=== PATIENT | male | born 1950 | race Caucasian/White ===

== ENCOUNTER 2016-09-14 11:24 | Emergency (ER) | payer OTHER ==
[~2016-09-14] VITALS: Ht 177.8 cm; Wt 84.6 kg
[2016-09-14] MEDS ORDERED: NITROGLYCERIN 0.4 MG SL PER TAB CHARGE SL STA (11:43)
[2016-09-14 12:05] LABS: HEMATOCRIT 46.8 % (42-52); MEAN CELL VOLUME 89.7 fL (80-100); MEAN CORPUSCULAR HEMOGLOBIN 30.1 pg (25-34); MEAN CORPUSCULAR HGB CONC 33.5 g/dl (32-36); MEAN PLATELET VOLUME 9.1 fL (7.4-10.4); PLATELET COUNT 204 K/uL (130-400); RED BLOOD COUNT 5.22 M/uL (4.7-6.1); WHITE BLOOD COUNT 7.55 K/uL (4.8-10.8)
--- NOTE | 2016-09-14 12:07 | DIAGNOSTIC IMAGING REPORT ---
CHEST ONE VIEW PORTABLE CLINICAL HISTORY: Chest and back pain COMPARISON STUDY: No previous studies for comparison. FINDINGS: The cardiac and mediastinal contours are normal. There is no evidence of focal pulmonary consolidation. There is no evidence of failure. No pleural effusions are visualized.[ IMPRESSION: No active disease in the chest. Electronically signed by: Demetri Valadez M.D. 09/14/2016 12:06 PM Dictated Date/Time: 09/14/2016 12:06 PM
[2016-09-14] MEDS ORDERED: LORA10CA10 PO (12:08)
[2016-09-14] MEDS ORDERED: ASPI81TA28 PO (12:08)
[2016-09-14] MEDS ORDERED: MULT-506 PO (12:08)
[2016-09-14] MEDS ORDERED: PRAV40TA PO (12:08)
[2016-09-14] MEDS ORDERED: MELO15TA4 PO (12:08)
[2016-09-14] MEDS ORDERED: OMEG10007 PO (12:08)
[2016-09-14 12:14] LABS: PROTHROMBIN TIME (PATIENT) 10.3 SECONDS (9.0-12.0)
[2016-09-14 12:15] LABS: ALT/SGPT 36 U/L (12-78); AST/SGOT 22 U/L (15-37); BLOOD UREA NITROGEN 18 mg/dl (7-18); BUN/CREATININE RATIO 18.6 (10-20); CALCIUM 9.2 mg/dl (8.5-10.1); CARBON DIOXIDE 28 mmol/L (21-32); CHLORIDE 106 mmol/L (98-107); CREATININE 0.96 mg/dl (0.60-1.40); GLUCOSE 97 mg/dl (70-99); POTASSIUM 4.8 mmol/L (3.5-5.1); SODIUM 142 mmol/L (136-145)
[2016-09-14 12:15] LABS: POINT OF CARE PRO-BNP 24 pg/ml (0-900); POINT OF CARE TROPONIN I < 0.030 ng/ml (0-0.045)
[2016-09-14 12:20] LABS: ALKALINE PHOSPHATASE 56 U/L (45-117); CKMB/CK RATIO 2.2 (0-3.0)
--- NOTE | 2016-09-14 12:31 | EMERGENCY ROOM VISIT NOTE ---
ED Visit Note First contact with patient: 11:34 I have seen and examined this patient with Cleo Munson and generally agree with the treatment plan as discussed. Current/Historical Medications Scheduled Aspirin (Aspirin Ec), 81 MG PO DAILY Fish Oil ([place]-3), 1 CAP PO BID Loratadine (Loratadine), 10 MG PO DAILY Meloxicam (Meloxicam), 15 MG PO QAM Multivitamin (Multivitamin), 1 TAB PO DAILY Pravastatin Sodium (Pravachol), 40 MG PO HS Allergies Coded Allergies: No Known Allergies (Unverified , 09/14/16) Vital Signs Date Time Temp Pulse Resp B/P (MAP) Pulse Ox O2 Delivery O2 Flow Rate FiO2 09/14/16 11:58 82 09/14/16 11:54 84 11 94 09/14/16 11:51 95 Room Air 09/14/16 11:50 84 116/84 96 Room Air 09/14/16 11:49 73 12 96 09/14/16 11:44 75 11 96 09/14/16 11:30 36.8 81 20 162/95 96 Room Air 09/14/16 11:28 162/95 Laboratory Results 09/14/16 11:35 Red Blood Count 5.22, Mean Corpuscular Volume 89.7, Mean Corpuscular Hemoglobin 30.1, Mean Corpuscular Hemoglobin Concent 33.5, Mean Platelet Volume 9.1 09/14/16 11:35 Test 09/14/16 11:35 09/14/16 11:55 White Blood Count 7.55 K/uL (4.8-10.8) Red Blood Count 5.22 M/uL (4.7-6.1) Hemoglobin 15.7 g/dL (14.0-18.0) Hematocrit 46.8 % (42-52) Mean Corpuscular Volume 89.7 fL (80-100) Mean Corpuscular Hemoglobin 30.1 pg (25-34) Mean Corpuscular Hemoglobin Concent 33.5 g/dl (32-36) Platelet Count 204 K/uL (130-400) Mean Platelet Volume 9.1 fL (7.4-10.4) RDW Standard Deviation 43.7 fL (36.4-46.3) RDW Coefficient of Variation 13.2 % (11.5-14.5) Prothrombin Time 10.3 SECONDS (9.0-12.0) Prothromb Time International Ratio 1.0 (0.9-1.1) Activated Partial Thromboplast Time 26.6 SECONDS (21.0-31.0) Partial Thromboplastin Ratio 1.0 Anion Gap 8.0 mmol/L (3-11) Est Creatinine Clear Calc Drug Dose 77.1 ml/min Estimated GFR () 94.4 Estimated GFR (Non- 81.5 BUN/Creatinine Ratio 18.6 (10-20) Calcium Level 9.2 mg/dl (8.5-10.1) Total Bilirubin 0.3 mg/dl (0.2-1) Direct Bilirubin < 0.1 mg/dl (0-0.2) Aspartate Amino Transf (AST/SGOT) 22 U/L (15-37) Alanine Aminotransferase (ALT/SGPT) 36 U/L (12-78) Alkaline Phosphatase 56 U/L (45-117) Total Creatine Kinase 117 U/L (39-308) Creatine Kinase MB 2.6 ng/ml (0.5-3.6) Creatine Kinase MB Ratio 2.2 (0-3.0) Total Protein 7.7 gm/dl (6.4-8.2) Albumin 3.9 gm/dl (3.4-5.0) Lipase 240 U/L (73-393) Bedside Troponin I < 0.030 ng/ml (0-0.045) OP-Byt-T-Type Natriuretic Peptide 24 pg/ml (0-900) Medications Administered Medications (Trade) Dose Ordered Sig/Brien Route Start Time Stop Time Status Last Admin Dose Admin Nitroglycerin (Nitrostat Tab) 0.4 mg Q5M STAT SL 09/14/16 11:43 09/14/16 11:48 DC 09/14/16 11:51 0.4 MG Departure Information Referrals Darron Wyman D.O. (PCP) Patient Instructions On License Of [facility]
[2016-09-14 12:34] LABS: BASO % 0.8 %; BASO ABS # 0.06 K/uL (0-0.2); COMPLETE YES; EOS % 6.2 %; IG% 0.3 %; LYMPH ABS # 3.85 K/uL (1.2-3.4); MONO % 7.2 %; NEUT % 34.5 %
--- NOTE | 2016-09-14 15:09 | EMERGENCY ROOM VISIT NOTE ---
History First contact with patient: 11:34 Chief Complaint: CHEST PAIN Stated Complaint: CHEST/BACK PAIN Nursing Triage Summary: see triage note History of Present Illness The patient is a 66 year old male who presents to the Emergency Room with complaints of chest pain. The patient states that 8:30 this morning he was eating breakfast and got left-sided chest pain that radiated under his left shoulder blade. He also stated that his "left arm feels funny". The patient states initially the pain was severe which she would rate at an 8 out of 10 but is now only a 2 out of 10. He states this severe pain only lasted for approximately 30 minutes. The patient had already taken 162 mg of aspirin early this morning along with Mobic 15 mg. When he got the pain in his chest at 8:30 he took an additional 325 mg of aspirin. He denies any associated nausea or sweating or shortness of breath. The patient denies any history of hypertension but does admit to history of hyperlipidemia. He denies smoking. He denies any recent leg pain. The patient does admit that there is a strong family history of CAD. His brother had a heart attack at age 44. The patient states that he had a stress test 4-5 years ago in [place] which was normal. His family physician assistant librarian is Dr. Wyman also in [place]. He came to [facility] because his son told him to come here. Review of Systems 10 system review was performed and was negative unless stated otherwise history of present illness. Past Medical/Surgical History Chest trauma, hyperlipidemia Social History Smoking Status: Never Smoker Drug Use: none Marital Status: Housing Status: lives with family Occupation Status: employed Current/Historical Medications Scheduled Aspirin (Aspirin Ec), 81 MG PO DAILY Fish Oil ([place]-3), 1 CAP PO BID Loratadine (Loratadine), 10 MG PO DAILY Meloxicam (Meloxicam), 15 MG PO QAM Multivitamin (Multivitamin), 1 TAB PO DAILY Pravastatin Sodium (Pravachol), 40 MG PO HS Allergies Coded Allergies: No Known Allergies (Unverified , 09/14/16) Physical Exam Vital Signs Date Time Temp Pulse Resp B/P (MAP) Pulse Ox O2 Delivery O2 Flow Rate FiO2 09/14/16 14:29 72 13 97 09/14/16 14:24 65 13 97 09/14/16 14:19 70 13 96 09/14/16 14:14 67 14 96 09/14/16 14:09 72 21 94 09/14/16 14:04 67 17 96 09/14/16 14:02 107/72 09/14/16 13:59 71 10 97 09/14/16 13:54 69 14 96 09/14/16 13:49 64 14 97 09/14/16 13:44 68 21 96 09/14/16 13:39 68 22 96 09/14/16 13:34 67 16 96 09/14/16 13:32 117/69 09/14/16 13:29 69 13 95 09/14/16 13:24 70 14 95 09/14/16 13:19 68 22 95 09/14/16 13:14 70 17 94 09/14/16 13:09 67 17 96 09/14/16 13:04 64 13 96 09/14/16 13:02 103/72 09/14/16 12:59 70 14 95 09/14/16 12:54 67 17 96 09/14/16 12:49 68 22 95 09/14/16 12:44 67 16 95 09/14/16 12:39 68 14 95 09/14/16 12:34 72 18 95 09/14/16 12:32 111/68 09/14/16 12:29 73 18 94 09/14/16 12:24 71 10 94 09/14/16 12:19 70 10 95 09/14/16 12:14 71 9 95 09/14/16 12:09 76 12 95 09/14/16 12:04 75 16 95 09/14/16 12:02 125/88 09/14/16 11:59 96 23 95 09/14/16 11:58 82 09/14/16 11:54 84 11 94 09/14/16 11:51 95 Room Air 09/14/16 11:50 84 116/84 96 Room Air 09/14/16 11:49 73 12 96 09/14/16 11:44 75 11 96 09/14/16 11:30 36.8 81 20 162/95 96 Room Air 09/14/16 11:28 162/95 Physical Exam GENERAL: 66-year-old white male appears in no acute distress. MENTAL Status: Alert and oriented 3. EYES: PERRLA. EOMs intact. NECK: Supple, no lymphadenopathy noted. No carotid bruits noted. LUNGS: Clear auscultation without wheezes rales or rhonchi. CARDIAC: Regular rate and rhythm without murmur. Pulses is full and equal throughout. ABDOMEN: Positive bowel sounds all 4 quadrants. Soft, nontender to palpation without organomegaly or masses. LOWER EXTREMITY: No cyanosis or edema noted. Calves are nontender. Negative Homans bilaterally. Medical Decision & Procedures ER Provider Diagnostic Interpretation: CHEST ONE VIEW PORTABLE CLINICAL HISTORY: Chest and back pain COMPARISON STUDY: No previous studies for comparison. FINDINGS: The cardiac and mediastinal contours are normal. There is no evidence of focal pulmonary consolidation. There is no evidence of failure. No pleural effusions are visualized.[ IMPRESSION: No active disease in the chest. Electronically signed by: Demetri Valadez M.D. 09/14/2016 12:06 PM Dictated Date/Time: 09/14/2016 12:06 PM Laboratory Results 09/14/16 11:35 Red Blood Count 5.22, Mean Corpuscular Volume 89.7, Mean Corpuscular Hemoglobin 30.1, Mean Corpuscular Hemoglobin Concent 33.5, Mean Platelet Volume 9.1, Neutrophils (%) (Auto) 34.5, Lymphocytes (%) (Auto) 51.0, Monocytes (%) (Auto) 7.2, Eosinophils (%) (Auto) 6.2, Basophils (%) (Auto) 0.8, Neutrophils # (Auto) 2.61, Lymphocytes # (Auto) 3.85, Monocytes # (Auto) 0.54, Eosinophils # (Auto) 0.47, Basophils # (Auto) 0.06 09/14/16 11:35 Test 09/14/16 11:35 09/14/16 11:55 09/14/16 14:08 09/14/16 14:45 White Blood Count 7.55 K/uL (4.8-10.8) Red Blood Count 5.22 M/uL (4.7-6.1) Hemoglobin 15.7 g/dL (14.0-18.0) Hematocrit 46.8 % (42-52) Mean Corpuscular Volume 89.7 fL (80-100) Mean Corpuscular Hemoglobin 30.1 pg (25-34) Mean Corpuscular Hemoglobin Concent 33.5 g/dl (32-36) Platelet Count 204 K/uL (130-400) Mean Platelet Volume 9.1 fL (7.4-10.4) Neutrophils (%) (Auto) 34.5 % Lymphocytes (%) (Auto) 51.0 % Monocytes (%) (Auto) 7.2 % Eosinophils (%) (Auto) 6.2 % Basophils (%) (Auto) 0.8 % Neutrophils # (Auto) 2.61 K/uL (1.4-6.5) Lymphocytes # (Auto) 3.85 K/uL (1.2-3.4) Monocytes # (Auto) 0.54 K/uL (0.11-0.59) Eosinophils # (Auto) 0.47 K/uL (0-0.5) Basophils # (Auto) 0.06 K/uL (0-0.2) RDW Standard Deviation 43.7 fL (36.4-46.3) RDW Coefficient of Variation 13.2 % (11.5-14.5) Immature Granulocyte % (Auto) 0.3 % Immature Granulocyte # (Auto) 0.02 K/uL (0.00-0.02) Prothrombin Time 10.3 SECONDS (9.0-12.0) Prothromb Time International Ratio 1.0 (0.9-1.1) Activated Partial Thromboplast Time 26.6 SECONDS (21.0-31.0) Partial Thromboplastin Ratio 1.0 Anion Gap 8.0 mmol/L (3-11) Est Creatinine Clear Calc Drug Dose 77.1 ml/min Estimated GFR () 94.4 Estimated GFR (Non- 81.5 BUN/Creatinine Ratio 18.6 (10-20) Calcium Level 9.2 mg/dl (8.5-10.1) Total Bilirubin 0.3 mg/dl (0.2-1) Direct Bilirubin < 0.1 mg/dl (0-0.2) Aspartate Amino Transf (AST/SGOT) 22 U/L (15-37) Alanine Aminotransferase (ALT/SGPT) 36 U/L (12-78) Alkaline Phosphatase 56 U/L (45-117) Total Creatine Kinase 117 U/L (39-308) Creatine Kinase MB 2.6 ng/ml (0.5-3.6) Creatine Kinase MB Ratio 2.2 (0-3.0) Total Protein 7.7 gm/dl (6.4-8.2) Albumin 3.9 gm/dl (3.4-5.0) Lipase 240 U/L (73-393) VP-Cwg-Y-Type Natriuretic Peptide 24 pg/ml (0-900) Bedside Troponin I < 0.030 ng/ml (0-0.045) Medications Administered Medications (Trade) Dose Ordered Sig/Rbien Route Start Time Stop Time Status Last Admin Dose Admin Nitroglycerin (Nitrostat Tab) 0.4 mg Q5M STAT SL 09/14/16 11:43 09/14/16 11:48 DC 09/14/16 11:51 0.4 MG ECG Indication: chest pain Rhythm: normal sinus Findings: no acute ischemic change ED Course The patient was evaluated. The patient was placed on a monitor and continuous pulse ox. IV access was obtained. EKG was ordered and interpreted by myself as above without any acute ST changes. CBC and differential, renal profile, LFTs and lipase levels, coags, CK-MB, [id number] BNP and troponin were ordered. The patient was given nitroglycerin sublingually. Chest x-ray was ordered and interpreted by the radiologist as above. The patient's case was discussed with Dr. Molina who independently evaluated the patient and agreed with treatment plan. After receiving the nitroglycerin the patient states that his pain at rest seemed to improve but he still has chest pain with movement. Labs are reviewed. Most were unremarkable. The patient's troponin was slightly bumped at 0.03. Repeat upon and in 2 hours was again 0.03. I discussed with the patient about being admitted for cardiac rule out. Initially he was not in agreement but eventually he agreed to admission. Hospitalist was consulted for evaluation and admission. Medical Decision Differential diagnosis include GERD, acute gastritis, pneumonia, acute bronchitis, acute [place], PE Impression Primary Impression: Left sided chest pain Departure Information Dispostion Being Evaluated By Hospitalist Condition GOOD Referrals Darron Wyman D.O. (PCP) Patient Instructions [facility]
[2016-09-14 15:15] LABS: URINE APPEARANCE CLEAR (CLEAR); URINE BILIRUBIN NEG (NEG); URINE COLOR YELLOW; URINE NITRITE NEG (NEG); URINE PH 6.5 (4.5-7.5); URINE SPECIFIC GRAVITY 1.016 (1.000-1.030); UROBILINOGEN NEG (NEG); ZZUR CULT IF INDIC CLEAN CATCH NO
[2016-09-14 15:34] LABS: MANUAL MICROSCOPIC REQUIRED? NO; REVIEW REQ? NO
[2016-09-14] MEDS ORDERED: ACETAMINOPHEN 325 MG TAB PO PRN (16:15)
[2016-09-14] MEDS ORDERED: ZOLPIDEM TARTRATE 5 MG TAB PO PRN (16:15)
[2016-09-14] MEDS ORDERED: NITROGLYCERIN 0.4 MG SL PER TAB CHARGE SL PRN (16:15)
[2016-09-14 16:30] VITALS: O2SAT 97; Ht 177.8 cm; Wt 84.6 kg
[2016-09-14] MEDS ORDERED: IV FLUIDS COMPLETED PRN (16:30)
[2016-09-14] MEDS ORDERED: ONDANSETRON INJ 2 MG/ML 2 ML VIAL IV PRN (16:30)
[2016-09-14 17:30] LABS: CKMB/CK RATIO 2.6 (0-3.0)
--- NOTE | 2016-09-14 19:28 | History and Physical ---
History & Physical Date & Time of Service: Sep 14, 2016 at 19:22 Chief Complaint: Left Sided Chest Pain Primary Care Physician: Darron Wyman D.O. History of Present Illness Source: patient The patient is a 66-year-old male who developed precordial chest pain several hours prior to arrival. His pain level upon arrival was 2/10, and resolved with sublingual nitroglycerin in the emergency department. His risk factors include strong family history, hypertension, hypercholesterolemia and male over the age 45. He reports no change in his usual activities that may have precipitated the chest discomfort. He denies any episodes of chest discomfort in the past. Social History Smoking Status: Never Smoker Smokeless Tobacco Use: No Alcohol Use: none Drug Use: none Marital Status: Housing status: lives with family Occupational Status: employed Multi-Drug Resistant Organisms History of MDRO: No Allergies Coded Allergies: No Known Allergies (Unverified , 09/14/16) Home Medications Scheduled Aspirin (Aspirin Ec), 81 MG PO DAILY Fish Oil ([place]-3), 1 CAP PO BID Loratadine (Loratadine), 10 MG PO DAILY Meloxicam (Meloxicam), 15 MG PO QAM Multivitamin (Multivitamin), 1 TAB PO DAILY Pravastatin Sodium (Pravachol), 40 MG PO HS Review of Systems The patient denies palpitations, cough, lower extremity swelling, vision change, hearing change, sore throat, fevers, chills, sweats, weight change, fatigue, nausea, vomiting, abdominal pain, pelvic pain, blood in urine or stool , dysuria, urinary frequency or urgency, lightheadedness, dizziness, headache, memory loss, rash, abnormal bruising or bleeding, imbalance, focal or generalized weakness, numbness or tingling in arms or legs, arthralgias or myalgias, back or neck pain, night sweats, or allergy symptoms. The review of systems is otherwise negative other than for that already noted above, and at least 10 systems have been reviewed. Physical Exam Vital Signs Date Time Temp Pulse Resp B/P (MAP) Pulse Ox O2 Delivery O2 Flow Rate FiO2 09/14/16 17:45 36.8 67 12 116/75 97 09/14/16 17:09 67 12 09/14/16 17:04 64 21 09/14/16 17:02 116/75 09/14/16 16:59 63 20 09/14/16 16:54 64 15 09/14/16 16:49 66 13 09/14/16 16:44 63 18 09/14/16 16:39 74 18 09/14/16 16:34 68 14 09/14/16 16:32 149/99 09/14/16 16:30 97 Room Air 09/14/16 16:29 67 17 09/14/16 16:24 65 23 09/14/16 16:19 79 17 09/14/16 16:14 77 18 09/14/16 16:09 69 21 09/14/16 16:04 63 16 09/14/16 16:02 130/90 09/14/16 16:00 71 18 128/86 97 Room Air 09/14/16 15:59 66 17 128/86 09/14/16 14:39 81 17 96 09/14/16 14:34 68 14 96 09/14/16 14:29 72 13 97 09/14/16 14:24 65 13 97 09/14/16 14:19 70 13 96 09/14/16 14:14 67 14 96 09/14/16 14:09 72 21 94 09/14/16 14:04 67 17 96 09/14/16 14:02 107/72 09/14/16 13:59 71 10 97 09/14/16 13:54 69 14 96 09/14/16 13:49 64 14 97 09/14/16 13:44 68 21 96 09/14/16 13:39 68 22 96 09/14/16 13:34 67 16 96 09/14/16 13:32 117/69 09/14/16 13:29 69 13 95 09/14/16 13:24 70 14 95 09/14/16 13:19 68 22 95 09/14/16 13:14 70 17 94 09/14/16 13:09 67 17 96 09/14/16 13:04 64 13 96 09/14/16 13:02 103/72 09/14/16 12:59 70 14 95 09/14/16 12:54 67 17 96 09/14/16 12:49 68 22 95 09/14/16 12:44 67 16 95 09/14/16 12:39 68 14 95 09/14/16 12:34 72 18 95 09/14/16 12:32 111/68 09/14/16 12:29 73 18 94 09/14/16 12:24 71 10 94 09/14/16 12:19 70 10 95 09/14/16 12:14 71 9 95 09/14/16 12:09 76 12 95 09/14/16 12:04 75 16 95 09/14/16 12:02 125/88 09/14/16 11:59 96 23 95 09/14/16 11:58 82 09/14/16 11:54 84 11 94 09/14/16 11:51 95 Room Air 09/14/16 11:50 84 116/84 96 Room Air 09/14/16 11:49 73 12 96 09/14/16 11:44 75 11 96 09/14/16 11:30 36.8 81 20 162/95 96 Room Air 09/14/16 11:28 162/95 The patient is awake, well-developed and adequately nourished, alert and oriented 3, normocephalic and atraumatic, lying in bed and in no acute distress. HEENT--PERRL, EOMI, mucous membranes and oropharynx dry. Neck--supple, no JVD or bruits, thyroid normal, trachea midline, no adenopathy. Heart--normal S1 and S2, no extra beats, no murmurs, rubs or gallops. Lungs--clear bilaterally with good air movement, no respiratory distress, no accessory muscle use. Abdomen--normal bowel sounds and soft, nontender and nondistended, no hernias or masses, no organomegaly. Extremities--no cyanosis, clubbing or edema. There are good distal pulses b/l. Dermatologic--normal skin turgor, normal color, warm and dry, no abnormal lymph nodes, no rash. Neurologic--cranial nerves II through XII grossly intact, motor and sensory examination normal. Rheumatologic--normal range of motion, nontender, muscles and joints. Psychiatric--normal affect. Diagnostics Laboratory Results Results Past 24 Hours Test 09/14/16 11:35 09/14/16 11:55 09/14/16 14:08 09/14/16 14:45 Range/Units White Blood Count 7.55 4.8-10.8 K/uL Red Blood Count 5.22 4.7-6.1 M/uL Hemoglobin 15.7 14.0-18.0 g/dL Hematocrit 46.8 42-52 % Mean Corpuscular Volume 89.7 80-100 fL Mean Corpuscular Hemoglobin 30.1 25-34 pg Mean Corpuscular Hemoglobin Concent 33.5 32-36 g/dl Platelet Count 204 130-400 K/uL Mean Platelet Volume 9.1 7.4-10.4 fL Neutrophils (%) (Auto) 34.5 % Lymphocytes (%) (Auto) 51.0 % Monocytes (%) (Auto) 7.2 % Eosinophils (%) (Auto) 6.2 % Basophils (%) (Auto) 0.8 % Neutrophils # (Auto) 2.61 1.4-6.5 K/uL Lymphocytes # (Auto) 3.85 1.2-3.4 K/uL Monocytes # (Auto) 0.54 0.11-0.59 K/uL Eosinophils # (Auto) 0.47 0-0.5 K/uL Basophils # (Auto) 0.06 0-0.2 K/uL RDW Standard Deviation 43.7 36.4-46.3 fL RDW Coefficient of Variation 13.2 11.5-14.5 % Immature Granulocyte % (Auto) 0.3 % Immature Granulocyte # (Auto) 0.02 0.00-0.02 K/uL Prothrombin Time 10.3 9.0-12.0 SECONDS Prothromb Time International Ratio 1.0 0.9-1.1 Activated Partial Thromboplast Time 26.6 21.0-31.0 SECONDS Partial Thromboplastin Ratio 1.0 Sodium Level 142 136-145 mmol/L Potassium Level 4.8 3.5-5.1 mmol/L Chloride Level 106 98-107 mmol/L Carbon Dioxide Level 28 21-32 mmol/L Anion Gap 8.0 3-11 mmol/L Blood Urea Nitrogen 18 7-18 mg/dl Creatinine 0.96 0.60-1.40 mg/dl Est Creatinine Clear Calc Drug Dose 77.1 ml/min Estimated GFR () 94.4 Estimated GFR (Non- 81.5 BUN/Creatinine Ratio 18.6 10-20 Random Glucose 97 70-99 mg/dl Calcium Level 9.2 8.5-10.1 mg/dl Total Bilirubin 0.3 0.2-1 mg/dl Direct Bilirubin < 0.1 0-0.2 mg/dl Aspartate Amino Transf (AST/SGOT) 22 15-37 U/L Alanine Aminotransferase (ALT/SGPT) 36 12-78 U/L Alkaline Phosphatase 56 45-117 U/L Total Creatine Kinase 117 39-308 U/L Creatine Kinase MB 2.6 0.5-3.6 ng/ml Creatine Kinase MB Ratio 2.2 0-3.0 Total Protein 7.7 6.4-8.2 gm/dl Albumin 3.9 3.4-5.0 gm/dl Lipase 240 73-393 U/L Bedside Troponin I < 0.030 < 0.030 0-0.045 ng/ml YC-Ard-T-Type Natriuretic Peptide 24 0-900 pg/ml Urine Color YELLOW Urine Appearance CLEAR CLEAR Urine pH 6.5 4.5-7.5 Urine Specific [place] 1.016 1.000-1.030 Urine Protein NEG NEG Urine Glucose (UA) NEG NEG Urine Ketones NEG NEG Urine Occult Blood NEG NEG Urine Nitrite NEG NEG Urine Bilirubin NEG NEG Urine Urobilinogen NEG NEG Urine Leukocyte Esterase NEG NEG Test 09/14/16 16:55 Range/Units Total Creatine Kinase 92 39-308 U/L Creatine Kinase MB 2.4 0.5-3.6 ng/ml Creatine Kinase MB Ratio 2.6 0-3.0 Troponin I < 0.015 0-0.045 ng/ml Diagnostic Radiology Patient Name: OSMAN CAMACHO Unit Number: [id number] Dictated: 09/14/161205 Transcribed: 09/14/161205 ARG Printed Date/Time: [~ rep prt dt]/[~ rep prt tm] [~ rep ct labl] - [~ rep ct ivnm] [facility] [place] [address] Dictated: 09/14/161205 Transcribed: 09/14/161205 ARG Printed Date/Time: [~ rep prt dt]/[~ rep prt tm] [~ rep ct labl] - [~ rep ct ivnm] CHEST ONE VIEW PORTABLE CLINICAL HISTORY: Chest and back pain COMPARISON STUDY: No previous studies for comparison. FINDINGS: The cardiac and mediastinal contours are normal. There is no evidence of focal pulmonary consolidation. There is no evidence of failure. No pleural effusions are visualized.[ IMPRESSION: No active disease in the chest. Electronically signed by: Demetri Valadez M.D. 09/14/2016 12:06 PM Dictated Date/Time: 09/14/2016 12:06 PM The status of this report is Signed. Draft = Not yet reviewed or approved by Radiologist. Signed = Reviewed and approved by Radiologist. <AttendingPhy></AttendingPhy> <FamilyPhy>Darron Wyman D.O.</FamilyPhy> < PrimaryPhy>Darron Wyman D.O.</PrimaryPhy> <UnitNumber>[id number]</ UnitNumber> <VisitNumber>[id number]</VisitNumber> <PatientName>OSMAN CAMACHO< /PatientName> <DateOfBirth>1950</DateOfBirth> <Location>[facility]</Location> < ServiceDate>09/14/16</ServiceDate> <MNE>ESINDI</MNE> <OrderingPhy>Selene Munson PA-C</OrderingPhy> <OrderingPhyMNE>f rep ord dr hedrick</OrderingPhyMNE> < DictatingPhyMNE>f rep dict dr hedrick</DictatingPhyMNE> <CCListMNE>f rep ct mne</ CCListMNE> <AdmittingPhyMNE>f pt admit dr hedrick</AdmittingPhyMNE> <AttendingPhyMNE >f pt attend dr hedrick</AttendingPhyMNE> <ConsultingPhyMNE>f pt consult dr hedrick</ConsultingPhyMNE> <FamilyPhyMNE>f pt fam dr hedrick</FamilyPhyMNE> <OtherPhyMNE>f pt other dr hedrick</OtherPhyMNE> < PrimaryPhyMNE>f pt prim care dr hedrick</PrimaryPhyMNE> <ReferringPhyMNE>f pt referring dr hedrick</ReferringPhyMNE> EKG EKG shows normal sinus rhythm at 81 bpm, left anterior fascicular block, left axis deviation, no acute ST-T changes. Impression Assessment and Plan Precordial chest pain--patient will be admitted to the telemetry unit for serial cardiac enzymes, cardiac rhythm monitoring and a 2-D echocardiogram with Dopplers. We'll continue aspirin 81 mg by mouth daily. If his workup is negative, he will need a stress test prior to discharge. Hypercholesterolemia--continue pravastatin 40 mg by mouth at bedtime, and fish oil 1 capsule by mouth twice a day. Seasonal allergy--continue loratadine 10 mg by mouth daily. Hold meloxicam 15 mg by mouth every morning. Level of Care Telemetry Advanced Directives Existing Advance Directive: No Existing Living Will: No Existing Power of Tear Down Worker: No Resuscitation Status FULL RESUSCITATION VTE Prophylaxis VTE Risk Assessment Done? Y/N: Yes Risk Level: Moderate Given or contraindicated: SCD's Social Service Consult None Apply
[2016-09-14] MEDS: OMEGA-3 (PURIFIED FISH OIL) 1 GM CAP PO SCH (19:54)
[2016-09-14 20:00] VITALS: BP 131/69; PULSE 82; TEMP 36.8; O2SAT 98
[2016-09-14] MEDS ORDERED: PRAVASTATIN SOD 40 MG TAB PO SCH (21:00)
[2016-09-14 21:43] VITALS: BP 131/69; PULSE 86; TEMP 36.8; O2SAT 96
[2016-09-14 23:41] VITALS: BP 148/86; PULSE 65; TEMP 36.5; O2SAT 94
[2016-09-15 01:08] LABS: CKMB/CK RATIO 2.1 (0-3.0)
[2016-09-15 03:54] VITALS: BP 142/78; PULSE 62; TEMP 36.6; O2SAT 95
[2016-09-15 06:02] LABS: BASO % 0.4 %; BASO ABS # 0.03 K/uL (0-0.2); COMPLETE YES; EOS % 5.4 %; HEMATOCRIT 45.1 % (42-52); IG% 0.1 %; LYMPH % 40.3 %; LYMPH ABS # 2.84 K/uL (1.2-3.4); MEAN CELL VOLUME 88.8 fL (80-100); MEAN CORPUSCULAR HEMOGLOBIN 29.7 pg (25-34); MEAN CORPUSCULAR HGB CONC 33.5 g/dl (32-36); MEAN PLATELET VOLUME 8.9 fL (7.4-10.4); MONO % 9.4 %; NEUT % 44.4 %; PLATELET COUNT 189 K/uL (130-400); RED BLOOD COUNT 5.08 M/uL (4.7-6.1); WHITE BLOOD COUNT 7.04 K/uL (4.8-10.8)
[2016-09-15 06:36] LABS: BLOOD UREA NITROGEN 15 mg/dl (7-18); CALCIUM 8.8 mg/dl (8.5-10.1); CARBON DIOXIDE 29 mmol/L (21-32); CHLORIDE 107 mmol/L (98-107); CREATININE 0.88 mg/dl (0.60-1.40); GLUCOSE 100 mg/dl (70-99); MAGNESIUM 2.3 mg/dl (1.8-2.4); POTASSIUM 4.4 mmol/L (3.5-5.1); SODIUM 141 mmol/L (136-145)
[2016-09-15 06:42] LABS: CKMB/CK RATIO 2.2 (0-3.0)
[2016-09-15 07:51] VITALS: BP 123/75; PULSE 65; TEMP 36.6; O2SAT 96
[2016-09-15] MEDS: OMEGA-3 (PURIFIED FISH OIL) 1 GM CAP PO SCH (07:58)
[2016-09-15 08:10] VITALS: O2SAT 96
[2016-09-15] MEDS ORDERED: LORATADINE 10 MG TAB PO SCH (09:00)
[2016-09-15] MEDS ORDERED: ASPIRIN 81 MG ECTAB PO SCH (09:00)
[2016-09-15] MEDS ORDERED: MULTIVITAMIN TAB PO SCH (09:00)
--- NOTE | 2016-09-15 09:52 | ECHOCARDIOGRAM REPORT ---
*NOTICE TO RECEIVING [employer] This information is strictly Confidential and protected under [place] law. [place] law prohibits you from making any further disclosure of this information unless further disclosure is expressly permitted by the written consent of the person to whom it pertains or is authorized by law. A general authorization for the release of medical or other information is not sufficient for this purpose. Hospital accepts no responsibility if the information is made available to any other person, INCLUDING THE PATIENT. Interpretation Summary * Name: OSMAN CAMACHO Study Date: 09/15/2016 07:02 AM BP: 142/78 mmHg * Patient Location: C.2T\S\S229\S\2 HR: 65 * : 1950 (M/d/yyyy) Gender: Male Height: 70 in * Age: 66 yrs Ethnicity: [place] Weight: 186 lb * Ordering Physician: Adriano Monk * Referring Physician: Self, Referred * Performed By: Cookie Dupree [facility] * * Reason For Study: CHEST PAIN * BSA: 2.0 m2 * -- Conclusions -- * 1. Normal LV size. Mild concentric LVH. * 2. Normal LV systolic function. LVEF 55-60%. No regional wall motion abnormalities. * 3. Normal RV size and function. * 4. Mild aortic valve sclerosis, no stenosis. Trace AI. * 5. No prior studies for comparison. Procedure Details * A complete two-dimensional transthoracic echocardiogram was performed (2D, M-mode, Doppler and color flow Doppler). Left Ventricle * The left ventricle is grossly normal size. * There is mild concentric left ventricular hypertrophy. * Ejection Fraction = 55-60%. Right Ventricle * The right ventricle is grossly normal size. * The right ventricular systolic function is normal as assessed by tricuspid annular plane systolic excursion (TAPSE) (normal >1.5 cm). Atria * The left atrial size is normal. * Right atrial size is normal. Mitral Valve * There is mild mitral annular calcification. * The mitral valve is grossly normal. * There is no mitral valve stenosis. * There is trace mitral regurgitation. Tricuspid Valve * The tricuspid valve is not well visualized, but is grossly normal. * There is no tricuspid stenosis. * There is trace tricuspid regurgitation. Aortic Valve * Aortic valve sclerosis mild, without significant aortic valvular stenosis. * The aortic valve is trileaflet. * No hemodynamically significant valvular aortic stenosis. * Trace aortic regurgitation. Pulmonic Valve * The pulmonary valve is inadequately visualized, but the Doppler data is adequate for interpretation. * Pulmonic stenosis is absent. * There is no significant pulmonary regurgitation. Great Vessels * The aortic root and proximal ascending aorta are normal sized. * No Doppler or imaging evidence of an aortic coarctation. Pericardium/Pleural * There is no pericardial effusion. Great Vessels * IVC > 2.1; <50% change with respiration. Est RA 8 mmHg. MMode 2D Measurements and Calculations IVSd 1.2 cm IVSs 1.6 cm LVIDd 4.2 cm LVIDs 3.2 cm LVPWd 1.1 cm LVPWs 1.2 cm IVS/LVPW 1.1 FS 24.0 % EDV(Teich) 78.0 ml ESV(Teich) 40.4 ml EF(Teich) 48.2 % EDV(cubed) 73.4 ml ESV(cubed) 32.3 ml EF(cubed) 56.1 % % IVS thick 38.3 % % LVPW thick 12.7 % LV mass(C)d 160.5 grams LV mass(C)dI 79.3 grams/m\S\2 LV mass(C)s 154.6 grams LV mass(C)sI 76.4 grams/m\S\2 SV(Teich) 37.6 ml SI(Teich) 18.6 ml/m\S\2 SV(cubed) 41.2 ml SI(cubed) 20.3 ml/m\S\2 Ao root diam 3.2 cm Ao root area 7.9 cm\S\2 ACS 1.8 cm LA dimension 4.0 cm LA/Ao 1.3 LVOT diam 2.2 cm LVOT area 3.8 cm\S\2 LVAd ap4 34.2 cm\S\2 LVLd ap4 8.5 cm EDV(MOD-sp4) 108.9 ml EDV(sp4-el) 116.2 ml LVAs ap4 22.5 cm\S\2 LVLs ap4 7.8 cm ESV(MOD-sp4) 53.3 ml ESV(sp4-el) 55.2 ml EF(MOD-sp4) 51.1 % EF(sp4-el) 52.5 % LVAd ap2 37.0 cm\S\2 LVLd ap2 8.6 cm EDV(MOD-sp2) 129.2 ml EDV(sp2-el) 134.8 ml LVAs ap2 23.6 cm\S\2 LVLs ap2 7.0 cm ESV(MOD-sp2) 65.6 ml ESV(sp2-el) 67.5 ml EF(MOD-sp2) 49.2 % EF(sp2-el) 49.9 % LVLd %diff 1.3 % EDV(MOD-bp) 118.7 ml LVLs %diff -11.16 % ESV(MOD-bp) 61.7 ml EF(MOD-bp) 48.0 % SV(MOD-sp4) 55.6 ml SI(MOD-sp4) 27.5 ml/m\S\2 SV(MOD-sp2) 63.6 ml SI(MOD-sp2) 31.4 ml/m\S\2 SV(MOD-bp) 57.0 ml SI(MOD-bp) 28.1 ml/m\S\2 SV(sp4-el) 61.0 ml SI(sp4-el) 30.1 ml/m\S\2 SV(sp2-el) 67.2 ml SI(sp2-el) 33.2 ml/m\S\2 Doppler Measurements and Calculations MV E max alan 45.3 cm/sec MV A max alan 69.6 cm/sec MV E/A 0.65 MV P1/2t max alan 57.8 cm/sec MV P1/2t 82.5 msec MVA(P1/2t) 2.7 cm\S\2 MV dec slope 205.3 cm/sec\S\2 MV dec time 0.21 sec Ao V2 max 125.8 cm/sec Ao max PG 6.3 mmHg Ao max PG (full) 3.0 mmHg RAQUEL(V,A) 2.8 cm\S\2 RAQUEL(V,D) 2.8 cm\S\2 AI max alan 430.2 cm/sec AI max PG 74.0 mmHg AI dec slope 128.5 cm/sec\S\2 AI P1/2t 980.6 msec LV V1 max PG 3.3 mmHg LV V1 max 91.1 cm/sec PA V2 max 160.1 cm/sec PA max PG 10.3 mmHg
--- NOTE | 2016-09-15 10:35 | EXERCISE STRESS ECHO ---
*NOTICE TO RECEIVING [employer] This information is strictly Confidential and protected under [place] law. [place] law prohibits you from making any further disclosure of this information unless further disclosure is expressly permitted by the written consent of the person to whom it pertains or is authorized by law. A general authorization for the release of medical or other information is not sufficient for this purpose. Hospital accepts no responsibility if the information is made available to any other person, INCLUDING THE PATIENT. Interpretation Summary * Name: OSMAN CAMACHO Study Date: 09/15/2016 08:50 AM BP: 122/84 mmHg * Patient Location: C.2T\S\S229\S\2 HR: 70 * : 1950 (M/d/yyyy) Gender: Male Height: 70 in * Age: 66 yrs Ethnicity: [place] Weight: 186 lb * Ordering Physician: Tiff Groves * Referring Physician: Self, Referred * Performed By: Cookie Dupree [facility] * * Reason For Study: CHEST PAIN * BSA: 2.0 m2 * -- Conclusions -- * 1. Negative exercise stress echo for ischemia at 92% MPHR. * 2. Negative exercise ECG for ischemia. * 3. Normal functional capacity. Exercised 6 minutes, achieved 7 METS. * 4. Normal hemodynamic response to exercise. No exercise induced chest pain. Low risk Grimm Treadmill Score (6). * 5. Normal LV size and function. For full details of patients resting function see echo report from earlier today. Procedure Details * ECHOEX, CPT #66965 Left Ventricular Findings with Stress * This was essentially a normal study. Left Ventricle * The left ventricle is grossly normal size. * No segmental left ventricular wall motion abnormalities are noted. * Resting wall motion: Normal. Stress wall motion: Appropriate increase in Left ventricular systolic function and decrease in cavity size. No stress induced segmental wall motion abnormalities. Stress Parameters * normal sinus rhythm, possible septal infarct * Stress ECG: No ST changes. No arrhythmias. * No arrhythmia were noted with stress. * The stress portion of this study was personally supervised by the undersigned interpreting physician. * Rest heart rate was '70' BPM. * Maximum heart rate achieved was 184/95 bpm. * Maximum heart rate was 92 % of maximum age-predicted heart rate. * Maximum blood pressure was '184/95' * Rest blood pressure was '122/84' * Total exercise time was '06:00' * Maximum exercise MET level achieved was '7.00' METS * Maximum treadmill speed was '2.50' miles per hour. * Maximum treadmill elevation was '12.00'% grade. Left Ventricular Findings with Stress * The study was technically good with many images being of high quality.
--- NOTE | 2016-09-15 10:38 | Discharge Instructions ---
Discharge Instructions Date of Service Sep 15, 2016. Admission Reason for Admission: Left Sided Chest Pain Discharge Discharge Diagnosis / Problem: Chest pain Discharge Goals Goal(s): Decrease discomfort, Improve function, Diagnostic testing, Therapeutic intervention Activity Recommendations Activity Limitations: resume your previous activity . Instructions / Follow-Up Instructions / Follow-Up You were admitted for overnight observation after presenting to the ER with chest pain. You received cardiac work up which included cardiac monitoring, serial cardiac enzymes, EKGs, and a stress echocardiogram (ultrasound of the heart before and after exercise). All of this work up was normal. You did not have any abnormal rhythms or acute events on cardiac monitoring. Your enzymes remained normal/negative. Your EKGs did not show acute ischemic changes, or evidence of poor bloody supply to the heart fischer. Your stress echocardiogram did not reproduce chest pain or ischemic changes. You are now medically stable for discharge. Medications: *No changes have been made to your medications. Please continue your home medications as prescribed. Follow up: *Please follow up with your primary care provider in 1 week regarding your hospital stay. Please seek medical attention if you experience fevers, chills, sweats, dizziness/lightheadedness, loss of consciousness, chest pain, shortness of breath, nausea, vomiting, numbness or tingling. Current Hospital Diet Patient's current hospital diet: AHA Diet (Heart Healthy) Discharge Diet Recommended Diet: AHA Diet (Heart Healthy) Procedures Procedures Performed: Stress echocardiogram Pending Studies Studies pending at discharge: no Medical Emergencies . Who to Call and When: Medical Emergencies: If at any time you feel your situation is an emergency, please call 911 immediately. . Non-Emergent Contact Non-Emergency issues call your: Primary Care Provider Call Non-Emergent contact if: you have a fever, your pain is not controlled, your pain is worsening, your pain is unusual for you, your pain is concerning you, you have any medication questions . Past History Medical & Surgical History: (1) Left sided chest pain . "Provider Documentation" section prepared by Tiff Groves. . VTE Core Measure Inpt VTE Proph given/why not?: SCD's
[2016-09-15 10:49] VITALS: BP 123/75; PULSE 65; TEMP 36.6; O2SAT 96
--- NOTE | 2016-09-15 15:17 | Discharge Summary ---
Discharge Summary Date of Service Sep 15, 2016. (Tiff Groves PA-C) Discharge Summary Admission Date: Sep 14, 2016 at 16:04 Discharge Date: Sep 15, 2016 Discharge Disposition: Home Principal Diagnosis: Chest pain Procedures: EXERCISE STRESS ECHO [place], [place] Patient: OSMAN CAMACHO Admit Date: 09/14/1705/11/17 Med Rec: [id number] Location: C.2T Acct ID: [id number] Room/Bed: [facility] Date: 1950 Sex: M Report #: [id number] Age: 66 Test: Fam Phy: Anish Frankel D.O. [employer] Instructor: Att Phy: Fabien Mills D.O. Diagnosis: LEFT SIDED CHEST PAIN Ailyn Phy: Anish Frankel D.O. Admit Phy: Adriano Monk M.D. Interpreting Phy: Cr De León MD Ordering Phy: CC: Fabien Mills D.O. Jones, Christopher R., MD Endcc: [~ rep ct labl] Page 2 of 3 p: [~ rep prt dt last] [~ rep prt tm last] EXERCISE STRESS ECHO [place], [place] Patient: OSMAN CAMACHO Admit Date: 09/14/1705/11/17 Med Rec: [id number] Location: C2 Acct ID: [id number] Room/Bed: [facility] Date: 1950 Sex: M Report #: [id number] Age: 66 Test: Fam Phy: Anish Frankel D.O. [employer] Instructor: Att Phy: Fabien Mills D.O. Diagnosis: LEFT SIDED CHEST PAIN Ailyn Phy: Anish Frankel D.O. Admit Phy: Adriano Monk M.D. Interpreting Phy: Cr De León MD Ordering Phy: CC: Fabien Mills D.O. Jones, Christopher R., MD Endcc: [~ rep ct labl] Page 1 of 1 p: [~ rep prt dt last] [~ rep prt tm last] *NOTICE TO RECEIVING [employer] This information is strictly Confidential and protected under [place] law. [place] law prohibits you from making any further disclosure of this information unless further disclosure is expressly permitted by the written consent of the person to whom it pertains or is authorized by law. A general authorization for the release of medical or other information is not sufficient for this purpose. Hospital accepts no responsibility if the information is made available to any other person, INCLUDING THE PATIENT. Interpretation Summary * Name: OSMAN CAMACHO Study Date: 09/15/2016 08:50 AM BP: 122/84 mmHg * Patient Location: C.2T\S\S229\S\2 HR: 70 * : 1950 (M/d/yyyy) Gender: Male Height: 70 in * Age: 66 yrs Ethnicity: [place] Weight: 186 lb * Ordering Physician: Tiff Groves * Referring Physician: Self, Referred * Performed By: Cookie Dupree, [facility] * * Reason For Study: CHEST PAIN * BSA: 2.0 m2 * -- Conclusions -- * 1. Negative exercise stress echo for ischemia at 92% MPHR. * 2. Negative exercise ECG for ischemia. * 3. Normal functional capacity. Exercised 6 minutes, achieved 7 METS. * 4. Normal hemodynamic response to exercise. No exercise induced chest pain. Low risk Grimm Treadmill Score (6). * 5. Normal LV size and function. For full details of patients resting function see echo report from earlier today. Procedure Details * ECHOEX, CPT #[id number] Left Ventricular Findings with Stress * This was essentially a normal study. Left Ventricle * The left ventricle is grossly normal size. * No segmental left ventricular wall motion abnormalities are noted. * Resting wall motion: Normal. Stress wall motion: Appropriate increase in Left ventricular systolic function and decrease in cavity size. No stress induced segmental wall motion abnormalities. Stress Parameters * normal sinus rhythm, possible septal infarct * Stress ECG: No ST changes. No arrhythmias. * No arrhythmia were noted with stress. * The stress portion of this study was personally supervised by the undersigned interpreting physician. * Rest heart rate was '70' BPM. * Maximum heart rate achieved was 184/95 bpm. * Maximum heart rate was 92 % of maximum age-predicted heart rate. * Maximum blood pressure was '184/95' * Rest blood pressure was '122/84' * Total exercise time was '06:00' * Maximum exercise MET level achieved was '7.00' METS * Maximum treadmill speed was '2.50' miles per hour. * Maximum treadmill elevation was '12.00'% grade. Left Ventricular Findings with Stress * The study was technically good with many images being of high quality. Created: Initialized: 09/15/16; 1035 <Electronically signed by Cr De León MD> Signed: 09/15/16 1312 Cr De León MD The status of this report is Signed. Draft = Not yet reviewed or approved by Pharmacy District Manager. Signed = Reviewed and approved by Pharmacy District Manager. (Tiff Groves ., JUANYC) Medication Reconciliation Continued Medications: Aspirin (Aspirin Ec) 81 Mg Tab 81 MG PO DAILY Fish Oil (Power-3) 1 Ea Cap 1 CAP PO BID, CAP Loratadine (Loratadine) 10 Mg Cap 10 MG PO DAILY Meloxicam (Meloxicam) 15 Mg Tab 15 MG PO QAM Multivitamin (Multivitamin) Tab 1 TAB PO DAILY, TAB Pravastatin Sodium (Pravachol) 40 Mg Tab 40 MG PO HS, TAB 3 Refills Referrals At Discharge Follow up Referrals: Family Practice Referral - Within 1 Week with Anish Frankel D.O. Discharge Exam Patient reports feeling well. He denies any chest pain now or shortness of breath. He tolerated the exercise stress echo well without chest pain. The patient denies fevers, chills, sweats, chest pain, palpitations, claudication, cough, wheezing, shortness of breath, nausea, vomiting, abdominal pain, dysuria , hematuria, urinary retention, paralysis, weakness, numbness and tingling. Review of Systems: Constitutional: No fever, No chills, No sweats Eyes: No worsening of vision, No eye pain, No diplopia ENT: No hearing loss, No sore throat, No trouble swallowing Respiratory: No cough, No wheezing, No shortness of breath Cardiovascular: No chest pain, No claudication, No palpitations Abdomen: No pain, No nausea, No vomiting Musculoskeletal: No joint pain, No muscle pain, No swelling Genitourinary - Male: No hematuria, No dysuria, No urinary retention Neurologic: No paralysis, No weakness, No numbness/tingling Integumentary: No rash, No itch, No color change Physical Exam: General Appearance: WD/WN, no apparent distress Eyes: normal inspection, PERRL, EOMI ENT: normal ENT inspection, hearing grossly normal, pharynx normal Neck: supple, no JVD, trachea midline Respiratory/Chest: lungs clear, normal breath sounds, no respiratory distress Cardiovascular: regular rate, rhythm, no gallop, no murmur Abdomen / GI: normal bowel sounds, non tender, soft Extremities: normal inspection, no calf tenderness, no pedal edema Neurologic/Psychiatric: alert, normal mood/affect, oriented x 3 Skin: normal color, warm/dry, no rash (Tiff Groves ., PA-C) Hospital Course 66 y/o male with a history of HLD and seasonal allergies who presents with left sided chest pain. Chest pain--resolved -Admitted to telemetry for observation. No events overnight. Patient remained in sinus rhythm with heart rate between 60s to 70s -Cardiac enzymes negative 3 -Stress echo negative -Continue ASA 81 mg PO qd HLD -Continue pravastatin 40 mg PO qhs and fish oil PO BID Seasonal allergy -Continue loratadine 10 mg PO qd DVT prophylaxis -SCDs Code Status -Level I, FULL RESUSCITATION STATUS Total Time Spent: Greater than 30 minutes This includes examination of the patient, discharge planning, medication reconciliation, and communication with other providers. (Tiff Groves ., PA-C) I agree with PA assessment and plan and have seen and examined pt myself Resting comfortably in bed No further episodes of chest pain VSS Labs reviewed Stress ECHO neg Possibly secondary to reflux esophagitis Stable for discharge (Fabien Mills D.O.) Discharge Instructions Please refer to the electronic Patient Visit Report (Discharge Instructions) for additional information. (Tiff Groves, JOI-C) Additional Copies To ANISH FRANKEL
== END 2016-09-15 11:22 | disposition home or self-care (01) ==
LOC: C.EDB 11:26 → C.2T 16:04 → ENRESERV 16:21
PROVIDERS: ADMIT Hospitalist; ATTEND Hospitalist
DX: R07.9 Chest pain, unspecified (principal); E78.5 Hyperlipidemia, unspecified; Z79.82 Long term (current) use of aspirin